=== PATIENT | female | born 1970 | race Caucasian/White ===

== ENCOUNTER 2019-02-23 09:29 | Emergency (ER) | payer OTHER ==
[2019-02-23 09:48] VITALS: BP 177/91
[2019-02-23] MEDS ORDERED: Acetaminophen TAB* 325 MG PO ONE (10:01)
--- NOTE | 2019-02-23 10:17 | ED ---
Lower Extremity - HPI Summary HPI Summary: 48 yr old female with the complaint of left posterior knee pain. Onset a couple of weeks ago when she sat on her bent back leg on the sofa as she usually does. she has pain that is worse in the popliteal area, and also in the left calf, and worse with pointing her toe and putting a boot on. Her pain is moderate. She has pain in the left knee that is worse with walking. She is able to bear weight. No fever or chills. NO other complaints. - History of Current Complaint Chief Complaint: UCLowerExtremity Stated Complaint: LEFT KNEE INJURY Time Seen by Provider: 02/23/19 09:45 Hx Last Menstrual Period: 07/25 Pain Intensity: 6 - Allergies/Home Medications Allergies/Adverse Reactions: Allergies Allergy/AdvReac Type Severity Reaction Status Date / Time amoxicillin Allergy Swelling Verified 02/23/19 09:44 Of Face,Lips,& Throat clavulanic acid Allergy Swelling Verified 02/23/19 09:44 [From Augmentin] Of Face,Lips,& Throat Sulfa (Sulfonamide Allergy Rash Verified 02/23/19 09:44 Antibiotics) PMH/Surg Hx/FS Hx/Imm Hx Endocrine/Hematology History: Reports: Hx Thyroid Disease - Surgical History Surgery Procedure, Year, and Place: Infectious Disease History: No Infectious Disease History: Denies: Traveled Outside the [place] in Last 30 Days - Family History Known Family History: Positive: None - Social History Occupation: Employed Full-time Alcohol Use: Occasionally Substance Use Type: Reports: None Smoking Status (MU): Never Smoked Tobacco Review of Systems Constitutional: Negative Positive: Other - left knee pain All Other Systems Reviewed And Are Negative: Yes Physical Exam Triage Information Reviewed: Yes Vital Signs On Initial Exam: Initial Vitals Temp Pulse Resp BP Pulse Ox 97.6 F 76 15 177/91 100 02/23/19 09:44 02/23/19 09:44 02/23/19 09:44 02/23/19 09:44 02/23/19 09:44 Vital Signs Reviewed: Yes Appearance: Positive: Well-Appearing, No Pain Distress Skin: Positive: Warm, Skin Color Reflects Adequate Perfusion Head/Face: Positive: Normal Head/Face Inspection Eyes: Positive: EOMI ENT: Positive: Normal ENT inspection Neck: Positive: Nontender Respiratory/Lung Sounds: Positive: Clear to Auscultation, Breath Sounds Present Cardiovascular: Positive: RRR. Negative: Murmur Abdomen Description: Negative: Distended Musculoskeletal: Positive: Other - left popliteal area is tender to palpation. Left knee no obvious effusion. She has intact ROM left knee without clicking. No redness. No increased warmth. Neurological: Positive: Sensory/Motor Intact, Alert, Oriented to Person Place, Time, CN Intact II-III, Normal Gait, Speech Normal Psychiatric: Positive: Normal Diagnostics - Vital Signs Vital Signs Temp Pulse Resp BP Pulse Ox 02/23/19 09:44 97.6 F 76 15 177/91 100 - Laboratory Lab Statement: Any lab studies that have been ordered have been reviewed, and results considered in the medical decision making process. - Radiology knee Radiology Interpretation Completed By: Radiologist - small effusion left knee. - Ultrasound left leg Ultrasound Interpretation Completed By: Radiologist - no DVT Lower Extremity Course/Dx - Course Course Of Treatment: 48 yr old female with left knee pain. No blood clot, and no clinical evidence of infection. Pain onset after hyper flexion at the knee when sitting on her leg. She will follow up with Ortho. The patient does not want crutches or immobilizer. - Diagnoses Provider Diagnoses: Left knee pain, Acute internal derangement of left knee Discharge ED - Sign-Out/Discharge Documenting (check all that apply): Patient Departure All imaging exams completed and their final reports reviewed: Yes - Discharge Plan Condition: Good Disposition: HOME Prescriptions: Ibuprofen TAB* [Motrin TAB* 600 MG] 600 mg PO Q6H PRN #14 tab PRN Reason: Pain - Moderate Patient Education Materials: Knee Pain (ED) Referrals: No Primary Care Phys,NOPCP [Primary Care Provider] - Howard Ozuna MD [Medical Doctor] - 2 Days - Billing Disposition and Condition Condition: GOOD Disposition: Home
== END 2019-02-23 11:15 | disposition home or self-care (01) ==
LOC: UCCORT 09:29
DX: M23.92 Unspecified internal derangement of left knee (principal); M25.562 Pain in left knee; Z88.0 Allergy status to penicillin; Z88.2 Allergy status to sulfonamides
CPT/HCPCS: 99212; A9270-GY; G0463